=== PATIENT | female | born 1980 | race Caucasian/White ===

== ENCOUNTER 2017-01-10 06:21 | Emergency (ER) | payer BC ==
--- NOTE | 2017-01-10 06:56 | Emergency Department Record ---
History of Present Illness - General Chief Complaint: Dizziness Stated Complaint: DIZZINESS Time Seen by Provider: 01/10/17 06:51 Source: Patient Mode of Arrival: Ambulatory Limitations: No limitations - History of Present Illness Initial Comments: 36 yo female presents with 2 days of feeling dizzy, lightheaded and off balance. It started in the afternoon two days ago and was noticed just turning her head. She feels like she can not walk a straight line. She feels tired and "out of it". No significant headache. No vision changes. No nausea or vomiting. No syncope. She has been under going medication changes due to elevated liver enzymes that have been monitored through her PCP and a specialist at [facility] (Dr Lynn MERCADO Complaint: Dizziness, Difficulty walking Onset/Timin -: Days(s) Timing: Constant Description: Difficulty walking, Off-balance History of Same: No History of Trauma: No Severity: Mild Improves With: Nothing Worsens With: Nothing Associated Symptoms: Weakness - [place] Coma Scale Eye Response: (4) Open spontaneously Motor Response: (6) Obeys commands Verbal Response: (5) Oriented Tonya Total: 15 - Related Data Home Medications Medication Instructions Recorded Confirmed Last Taken Cetirizine HCl [Zyrtec] 10 mg PO DAILY 01/10/17 01/10/17 Unknown Fluoxetine HCl [Prozac] 40 mg PO DAILY 01/10/17 01/10/17 Unknown Allergies Allergy/AdvReac Type Severity Reaction Status Date / Time oxaprozin [From Daypro] Allergy RASH Verified 01/10/17 06:26 bupropion HCl AdvReac Mood Verified 01/10/17 06:26 [From Wellbutrin] Changes Travel Screening - Travel/Exposure Within Last 30 Days Have you traveled within the last 30 days?: No Review of Systems Constitutional: Reports: Malaise, Weakness. Denies: Chills, Fever Eyes: Denies: Eye discharge, Eye pain, Photophobia, Vision change ENT: Denies: Congestion, Throat pain Respiratory: Denies: Cough, Dyspnea, Hemoptysis, Stridor, Wheezes Cardiovascular: Reports: Syncope (2 years ago). Denies: Chest pain, Palpitations Endocrine: Reports: Fatigue. Denies: Polydipsia, Polyuria Gastrointestinal: Denies: Abdominal pain, Diarrhea, Nausea, Vomiting Genitourinary: Denies: Dysuria Musculoskeletal: Denies: Arthralgia, Back pain, Myalgia, Neck pain Skin: Reports: Bruising Neurological: Reports: Vertigo, Weakness. Denies: Confusion, Headache, Numbness , Tingling, Tremors Psychiatric: Denies: Anxiety Hematological/Lymphatic: Denies: Blood Clots, Easy bleeding, Easy bruising, Swollen glands Past Medical History - SOCIAL HISTORY Smoking Status: Light tobacco smoker (<10/day) Alcohol Use: None Drug Use: None - RESPIRATORY Hx Respiratory Disorders: No - CARDIOVASCULAR Hx Cardio Disorders: No - NEURO Hx Neuro Disorders: Yes Hx Headaches: Yes - GI Hx GI Disorders: Yes Hx Reflux: Yes - Hx Genitourinary Disorders: No - ENDOCRINE Hx Endocrine Disorders: No - MUSCULOSKELETAL Hx Musculoskeletal Disorders: No - PSYCH Hx Psych Problems: Yes Hx Depression: Yes - HEMATOLOGY/ONCOLOGY Hx Hematology/Oncology Disorders: No Family Medical History Any Significant Family History?: Yes Hx Cancer: Grandparents Hx Depression: Father *Diabetes Comment: Uncle *HTN Comment: Uncle Physical Exam - General General Appearance: Alert, Oriented x3, Cooperative, No acute distress Limitations: No limitations - Head Head exam: Normal inspection - Eye Eye exam: Normal appearance. negative: Conjunctival injection, Periorbital swelling - ENT ENT exam: Normal exam, Mucous membranes moist, Normal orophraynx Ear exam: Normal external inspection. negative: External canal tenderness Nasal Exam: Normal inspection. negative: Discharge, Sinus tenderness Mouth exam: Normal external inspection, Tongue normal Teeth exam: Normal inspection. negative: Dental caries Throat exam: Normal inspection. negative: Tonsillar erythema, Tonsillar exudate - Neck Neck exam: Normal inspection, Full ROM. negative: Lymphadenopathy, Tenderness - Respiratory Respiratory exam: Normal lung sounds bilaterally. negative: Respiratory distress - Cardiovascular Cardiovascular Exam: Regular rate, Normal rhythm, Normal heart sounds Peripheral Pulses: 2+: Radial (R), Radial (L) - Rectal Rectal exam: Deferred - exam: Deferred - Extremities Extremities exam: Normal inspection, Full ROM, Normal capillary refill. negative: Pedal edema, Tenderness - Back Back exam: Reports: Normal inspection, Full ROM. Denies: Muscle spasm, Rash noted, Tenderness - Neurological Neurological exam: Alert, Normal gait, Oriented X3. negative: Altered, Motor sensory deficit - Psychiatric Psychiatric exam: Normal affect, Normal mood. negative: Agitated, Anxious - Skin Skin exam: Dry, Intact, Normal color, Warm Course Vital Signs 04/12/17 06:30 Temperature 98.7 F Pulse Rate 69 Respiratory 18 Rate Blood Pressure 126/79 Pulse Ox 99 - Reevaluation(s) Reevaluation #1: The case was signed out to Dr Almaraz 01/10/17 07:00 Disposition Forms: Patient Portal Access
[2017-01-10 07:09] LABS: BASO % 0.6 % (0-6); EOS % 2.8 % (0-6); GRAN % 66.4 % (47-80); HEMOGLOBIN 14.1 gm/dl (11.6-16.0); LYMPH % 22.9 % (16-45); MEAN CELL VOLUME 94.4 fl (81-97); MEAN CORPUSCULAR HEMOGLOBIN 30.3 pg (27-33); MEAN PLATELET VOLUME 10.5 fl (7.4-10.4); MONO % 7.3 % (0-9); PLATELET COUNT 293 K/uL (130-400); RED BLOOD COUNT 4.66 M/uL (3.80-5.40); RED CELL DISTRIBUTION WIDTH 13.3 % (11.5-14.5); WHITE BLOOD COUNT W/O DIFF 6.7 K/uL (4.2-12.2)
[2017-01-10 07:14] LABS: URINE APPEARANCE CLEAR; URINE BILIRUBIN NEGATIVE (NEGATIVE); URINE BLOOD TRACE-I (NEGATIVE); URINE COLOR YELLOW; URINE GLUCOSE (UA) NEGATIVE (NEGATIVE); URINE KETONE NEGATIVE (NEGATIVE); URINE LEUKOCYTE ESTERASE NEGATIVE (NEGATIVE); URINE NITRITE NEGATIVE (NEGATIVE); URINE PROTEIN NEGATIVE (NEGATIVE); URINE UROBILINOGEN 0.2 E.U./dL (0.20 - 1.00)
[2017-01-10 07:18] LABS: AMPHETAMINE SCREEN URINE NOT DETECTED; BARBITURATE SCREEN URINE NOT DETECTED; BENZODIAZEPINE SCREEN URINE NOT DETECTED; COCAINE SCREEN URINE NOT DETECTED; METHADONE SCREEN URINE NOT DETECTED; METHAMPHETAMINE SCREEN NOT DETECTED; OPIATE SCREEN URINE NOT DETECTED; OXYCODONE SCREEN URINE NOT DETECTED; PHENCYCLIDINE SCREEN URINE NOT DETECTED; PROPOXYPHENE SCREEN URINE NOT DETECTED; THC SCREEN URINE NOT DETECTED; TRICYCLIC ANTIDEPRESSANT SCRN NOT DETECTED
[2017-01-10 07:21] LABS: URINE BACTERIA NONE SEEN; URINE EPITHELIAL CELLS NONE SEEN (FEW); URINE RBC 0 - 2 (NONE SEEN); URINE WBC NONE SEEN (0-2/hpf)
[2017-01-10 07:23] LABS: INR 0.91; PARTIAL THROMBOPLASTIN TIME 29.8 SECONDS (24.5-39.1); PROTHROMBIN TIME (PATIENT) 10.3 SECONDS (9.5-12.1)
[2017-01-10 07:24] LABS: AMMONIA < 8.7 umol/L (9-30); BLOOD UREA NITROGEN 12 mg/dL (7-17); CREATININE 0.9 mg/dL (0.52-1.04); EST GLOMERULAR FILTRATION RATE > 60 ml/min; GLUCOSE,RANDOM 98 mg/dL (70-110)
[2017-01-10 07:25] LABS: ALKALINE PHOSPHATASE 93 U/L (38-126); ALT/SGPT 132 U/L (9-52); AST/SGOT 93 U/L (14-36); BILIRUBIN,DIRECT 0.3 mg/dL (0-0.3); TOTAL PROTEIN 6.8 gm/dL (6.3-8.2)
[2017-01-10] MEDS: MECLIZINE 25 MG TABLET PO ONE (07:42)
--- NOTE | 2017-01-10 07:44 | Emergency Department Record ---
History of Present Illness - General Chief Complaint: Dizziness Stated Complaint: DIZZINESS Time Seen by Provider: 01/10/17 06:51 Source: Patient Mode of Arrival: Ambulatory Limitations: No limitations - History of Present Illness Onset/Timin -: Days(s) Timing: Constant Description: Difficulty walking, Off-balance History of Same: No History of Trauma: No Severity: Mild Improves With: Nothing Worsens With: Nothing Associated Symptoms: Weakness - [place] Coma Scale Eye Response: (4) Open spontaneously Motor Response: (6) Obeys commands Verbal Response: (5) Oriented Tonya Total: 15 - Related Data Home Medications Medication Instructions Recorded Confirmed Last Taken Cetirizine HCl [Zyrtec] 10 mg PO DAILY 01/10/17 01/10/17 Unknown Fluoxetine HCl [Prozac] 40 mg PO DAILY 01/10/17 01/10/17 Unknown Previous Rx's Medication Instructions Recorded Meclizine HCl [Antivert] 25 mg PO Q8H #20 tablet 01/10/17 Allergies Allergy/AdvReac Type Severity Reaction Status Date / Time oxaprozin [From Daypro] Allergy RASH Verified 01/10/17 06:26 bupropion HCl AdvReac Mood Verified 01/10/17 06:26 [From Wellbutrin] Changes Travel Screening - Travel/Exposure Within Last 30 Days Have you traveled within the last 30 days?: No Review of Systems Constitutional: Reports: Malaise, Weakness. Denies: Chills, Fever Eyes: Denies: Eye discharge, Eye pain, Photophobia, Vision change ENT: Denies: Congestion, Throat pain Respiratory: Denies: Cough, Dyspnea, Hemoptysis, Stridor, Wheezes Cardiovascular: Reports: Syncope (2 years ago). Denies: Chest pain, Palpitations Endocrine: Reports: Fatigue. Denies: Polydipsia, Polyuria Gastrointestinal: Denies: Abdominal pain, Diarrhea, Nausea, Vomiting Genitourinary: Denies: Dysuria Musculoskeletal: Denies: Arthralgia, Back pain, Myalgia, Neck pain Skin: Reports: Bruising Neurological: Reports: Vertigo, Weakness. Denies: Confusion, Headache, Numbness , Tingling, Tremors Psychiatric: Denies: Anxiety Hematological/Lymphatic: Denies: Blood Clots, Easy bleeding, Easy bruising, Swollen glands Past Medical History - SOCIAL HISTORY Smoking Status: Light tobacco smoker (<10/day) Alcohol Use: None Drug Use: None - RESPIRATORY Hx Respiratory Disorders: No - CARDIOVASCULAR Hx Cardio Disorders: No - NEURO Hx Neuro Disorders: Yes Hx Headaches: Yes - GI Hx GI Disorders: Yes Hx Reflux: Yes - Hx Genitourinary Disorders: No - ENDOCRINE Hx Endocrine Disorders: No - MUSCULOSKELETAL Hx Musculoskeletal Disorders: No - PSYCH Hx Psych Problems: Yes Hx Depression: Yes - HEMATOLOGY/ONCOLOGY Hx Hematology/Oncology Disorders: No Family Medical History Any Significant Family History?: Yes Hx Cancer: Grandparents Hx Depression: Father *Diabetes Comment: Uncle *HTN Comment: Uncle Physical Exam - General Limitations: No limitations Course Vital Signs 01/10/17 06:30 Temperature 98.7 F Pulse Rate 69 Respiratory 18 Rate Blood Pressure 126/79 Pulse Ox 99 - Reevaluation(s) Reevaluation #1: The patient is doing well presently. She denies any dizziness unless she is turning her head. She was texting on her phone when I walked into the room. There is no ROMERO, visual changes, neck pain, or weakness. We will try some Antivert and recheck the patient. 01/10/17 07:42 Reevaluation #2: The patient is doing much better. She states her dizziness is 90% improved with the Antivert. She is up walking with a steady gait and with a neg Drift and [place] exams. She denies any ROMERO, visual changes, nausea or vomiting. We will prescribe her Antivert for home and have her F/U with her PCP next week. 01/10/17 08:14 01/10/17 08:17 Medical Decision Making - Lab Data Result diagrams: 01/10/17 07:00 01/10/17 07:00 Lab Results 01/10/17 01/10/17 01/10/17 Range/Units 07:00 07:00 07:00 WBC 6.7 (4.2-12.2) K/uL RBC 4.66 (3.80-5.40) M/uL Hgb 14.1 (11.6-16.0) gm/dl Hct 44.0 (35.0-47.0) % MCV 94.4 (81-97) fl MCH 30.3 (27-33) pg MCHC 32.0 (32-36) g/dl RDW 13.3 (11.5-14.5) % Plt Count 293 (130-400) K/uL MPV 10.5 H (7.4-10.4) fl Gran % 66.4 (47-80) % Lymphocytes % 22.9 (16-45) % Monocytes % 7.3 (0-9) % Eosinophils % 2.8 (0-6) % Basophils % 0.6 (0-6) % PT 10.3 (9.5-12.1) SECONDS INR 0.91 APTT 29.80 (24.5-39.1) SECONDS Sodium (136-145) mmol/L Potassium (3.5-5.1) mmol/L Chloride (98-107) mmol/L Carbon Dioxide (22-30) mmol/L Anion Gap (7-16) BUN (7-17) mg/dL Creatinine (0.52-1.04) mg/dL Estimated GFR ml/min Random Glucose (70-110) mg/dL Calcium (8.5-10.1) mg/dL Total Bilirubin (0.2-1.3) mg/dL Direct Bilirubin (0-0.3) mg/dL AST (14-36) U/L ALT (9-52) U/L Alkaline Phosphatase (38-126) U/L Ammonia (9-30) umol/L Total Protein (6.3-8.2) gm/dL Albumin (3.5-5.0) gm/dL Urine Color Yellow Urine Appearance Clear Urine pH 5.5 (5.0-8.0) Ur Specific [place] >= 1.030 (1.002-1.030) Urine Protein Negative (NEGATIVE) Urine Glucose (UA) Negative (NEGATIVE) Urine Ketones Negative (NEGATIVE) Urine Blood Trace-i (NEGATIVE) Urine Nitrite Negative (NEGATIVE) Urine Bilirubin Negative (NEGATIVE) Urine Urobilinogen 0.2 (0.20 - 1.00) E.U./dL Ur Leukocyte Esterase Negative (NEGATIVE) Urine RBC 0 - 2 (NONE SEEN) Urine WBC None seen (0-2/hpf) Ur Epithelial Cells None seen (FEW) Urine Bacteria None seen Urine HCG, Qual (NEGATIVE) Urine Opiates Screen Ur Oxycodone Screen Urine Methadone Screen Ur Propoxyphene Screen Ur Barbituates Screen Ur Tricyclics Screen Ur Phencyclidine Scrn Ur Amphetamine Screen U Methamphetamines Scrn U Benzodiazepines Scrn Urine Cocaine Screen Urine Cannabis Screen 01/10/17 01/10/17 01/10/17 Range/Units 07:00 07:00 07:00 WBC (4.2-12.2) K/uL RBC (3.80-5.40) M/uL Hgb (11.6-16.0) gm/dl Hct (35.0-47.0) % MCV (81-97) fl MCH (27-33) pg MCHC (32-36) g/dl RDW (11.5-14.5) % Plt Count (130-400) K/uL MPV (7.4-10.4) fl Gran % (47-80) % Lymphocytes % (16-45) % Monocytes % (0-9) % Eosinophils % (0-6) % Basophils % (0-6) % PT (9.5-12.1) SECONDS INR APTT (24.5-39.1) SECONDS Sodium 140 (136-145) mmol/L Potassium 4.2 (3.5-5.1) mmol/L Chloride 107 (98-107) mmol/L Carbon Dioxide 26.0 (22-30) mmol/L Anion Gap 7.0 (7-16) BUN 12 (7-17) mg/dL Creatinine 0.9 (0.52-1.04) mg/dL Estimated GFR > 60 ml/min Random Glucose 98 (70-110) mg/dL Calcium 8.7 (8.5-10.1) mg/dL Total Bilirubin 0.50 (0.2-1.3) mg/dL Direct Bilirubin 0.3 (0-0.3) mg/dL AST 93 H (14-36) U/L ALT 132 H (9-52) U/L Alkaline Phosphatase 93 (38-126) U/L Ammonia < 8.7 L (9-30) umol/L Total Protein 6.8 (6.3-8.2) gm/dL Albumin 4.0 (3.5-5.0) gm/dL Urine Color Urine Appearance Urine pH (5.0-8.0) Ur Specific [place] (1.002-1.030) Urine Protein (NEGATIVE) Urine Glucose (UA) (NEGATIVE) Urine Ketones (NEGATIVE) Urine Blood (NEGATIVE) Urine Nitrite (NEGATIVE) Urine Bilirubin (NEGATIVE) Urine Urobilinogen (0.20 - 1.00) E.U./dL Ur Leukocyte Esterase (NEGATIVE) Urine RBC (NONE SEEN) Urine WBC (0-2/hpf) Ur Epithelial Cells (FEW) Urine Bacteria Urine HCG, Qual Negative (NEGATIVE) Urine Opiates Screen Not detected Ur Oxycodone Screen Not detected Urine Methadone Screen Not detected Ur Propoxyphene Screen Not detected Ur Barbituates Screen Not detected Ur Tricyclics Screen Not detected Ur Phencyclidine Scrn Not detected Ur Amphetamine Screen Not detected U Methamphetamines Scrn Not detected U Benzodiazepines Scrn Not detected Urine Cocaine Screen Not detected Urine Cannabis Screen Not detected Disposition Disposition: Discharge Clinical Impression: Vertigo Disposition: Home, Self-Care Condition: (1) Good Instructions: Dizziness (ED) Additional Instructions: Please take the Antivert as directed. Please see your PCP next week for recheck. Return to the ER for any increased dizziness, any ROMERO, fever or vomiting. Prescriptions: Meclizine HCl [Antivert] 25 mg PO Q8H #20 tablet Forms: Patient Portal Access Time of Disposition: 08:19
== END 2017-01-10 08:35 | disposition home or self-care (01) ==
LOC: ER 06:21
DX: R42 Dizziness and giddiness (principal); R26.2 Difficulty in walking, not elsewhere classified; R74.8 Abnormal levels of other serum enzymes; Z79.899 Other long term (current) drug therapy
CPT/HCPCS: 80048; 80076; 80305; 81001; 81025; 82140; 85025; 85610; 85730; 99283; 99284

== ENCOUNTER 2017-09-01 03:33 | Emergency (ER) | payer BC ==
--- NOTE | 2017-09-01 03:43 | Emergency Department Record ---
History of Present Illness - General Chief Complaint: Chest Pain Stated Complaint: CHEST PAIN Time Seen by Provider: 09/01/17 03:33 Source: Patient Mode of Arrival: Ambulatory Limitations: No limitations - History of Present Illness Initial Comments: 37 yo female presents with chest pain. The patient reports the pain started at 9:30pm. She was laying down to go to bed with the onset. The pain is mid chest. The pain is more noticeable with laying down or taking a deep breath. The pain does radiate to the back with deep inspiration. She did notice some increased reflux early Sunday morning. She did not take anything for the symptoms. She feels some restriction with breathing due to pain with inspiration. NO history of cardiac or pulmonary disease. No family history of CAD or PE. NO recent leg pain or swelling. No known cancers. She reports she has had chest pain in the past and was evaluated at [facility]. She states she had a normal stress test and believes anxiety was the diagnosis at that time. MD Complaint: Chest pain -: Hour(s) (6) Onset: During rest Pain Location: Substernal Pain Radiation: Back Severity: Moderate Quality: Aching Consistency: Constant Improves With: Remaining still Worsens With: Inspiration Anginal Symptoms: Other Treatments Prior to Arrival: None - Related Data Previous Rx's Medication Instructions Recorded Meclizine HCl [Antivert] 25 mg PO Q8H #20 tablet 01/10/17 Cyclobenzaprine HCl [Flexeril] 10 mg PO TID #15 tablet 09/01/17 Allergies Allergy/AdvReac Type Severity Reaction Status Date / Time oxaprozin [From Daypro] Allergy RASH Verified 01/10/17 06:26 bupropion HCl AdvReac Mood Verified 01/10/17 06:26 [From Wellbutrin] Changes hydrocodone AdvReac NAUSEA AND Verified 09/01/17 04:08 VOMITING Review of Systems Constitutional: Denies: Chills, Fever, Malaise, Weakness Eyes: Denies: Eye discharge ENT: Denies: Congestion, Throat pain Respiratory: Denies: Cough, Dyspnea, Hemoptysis, Stridor, Wheezes Cardiovascular: Reports: As per HPI, Chest pain. Denies: Edema, Palpitations, Syncope Endocrine: Denies: Fatigue Gastrointestinal: Denies: Abdominal pain, Diarrhea, Nausea, Vomiting Genitourinary: Denies: Dysuria, Urgency Musculoskeletal: Denies: Arthralgia, Back pain, Joint swelling, Myalgia, Neck pain Skin: Reports: Rash (healed shingles). Denies: Bruising, Change in color Neurological: Denies: Headache, Numbness, Weakness Psychiatric: Denies: Anxiety Hematological/Lymphatic: Denies: Blood Clots, Easy bleeding, Easy bruising, Swollen glands Past Medical History - SOCIAL HISTORY Smoking Status: Light tobacco smoker (<10/day) Drug Use: None - RESPIRATORY Hx Respiratory Disorders: No - CARDIOVASCULAR Hx Cardio Disorders: No - NEURO Hx Neuro Disorders: Yes Hx Headaches: Yes - GI Hx GI Disorders: Yes Hx Reflux: Yes - Hx Genitourinary Disorders: No - ENDOCRINE Hx Endocrine Disorders: No - MUSCULOSKELETAL Hx Musculoskeletal Disorders: No - PSYCH Hx Psych Problems: Yes Hx Depression: Yes - HEMATOLOGY/ONCOLOGY Hx Hematology/Oncology Disorders: No Family Medical History Hx Cancer: Grandparents Hx Depression: Father *Diabetes Comment: Uncle *HTN Comment: Uncle Physical Exam - General General Appearance: Alert, Oriented x3, Cooperative, No acute distress Limitations: No limitations - Head Head exam: Atraumatic, Normocephalic, Normal inspection - Eye Eye exam: Normal appearance. negative: Conjunctival injection, Periorbital swelling, Scleral icterus - ENT ENT exam: Normal exam, Mucous membranes moist Ear exam: Normal external inspection Nasal Exam: Normal inspection Mouth exam: Normal external inspection - Neck Neck exam: Normal inspection, Full ROM. negative: Tenderness - Respiratory Respiratory exam: Normal lung sounds bilaterally, Chest wall tenderness (The sternum is tender at its mid to distal area.). negative: Accessory muscle use, Decreased breath sounds, Respiratory distress, Rhonchi, Stridor, Wheezes - Cardiovascular Cardiovascular Exam: Regular rate, Normal rhythm, Normal heart sounds. negative : Diastolic murmur, Systolic murmur Peripheral Pulses: 2+: Radial (R), Radial (L) - GI/Abdominal GI/Abdominal exam: Soft. negative: Guarding, Rebound, Tenderness - Rectal Rectal exam: Deferred - exam: Deferred - Extremities Extremities exam: Normal inspection, Full ROM, Normal capillary refill. negative: Pedal edema, Tenderness - Back Back exam: Reports: Normal inspection, Full ROM, Tenderness. Denies: CVA tenderness (R), CVA tenderness (L), Muscle spasm, Rash noted Image of Body Front/Back: 1 - tender to palpation normal inspection, clear lungs bilateral without wheeze - Neurological Neurological exam: Alert, Normal gait, Oriented X3 - Psychiatric Psychiatric exam: Normal affect, Normal mood - Skin Skin exam: Dry, Intact, Normal color, Warm Course - Reevaluation(s) Reevaluation #1: 09/01/17 03:38 The EMR and the [facility] was reviewed The patient was seen at [facility] on 08/10/17 in the clinic 09/01/17 03:41 EKG 03:37 NSR rate 77, intervals normal, axis leftward, ST no acute changes.. No old on EMR 09/01/17 03:56 Prior EKG from [facility] requested. 09/01/17 04:06 EKG was obtained from [facility] from 09/22/16. The EKG was reviewed and is unchanged from today's EKG. 09/01/17 04:10 CTA of the chest with contrast was reviewed from 03/01/10 Nodule noted, No acute process. 09/01/17 04:21 The D-Dimer is negative at 0.23 09/01/17 04:26 The troponin is negative 09/01/17 04:48 On recheck the pain with inspiration is not improved with Toradol or GI cocktail I recommend CTA given the pain is not improved The prelim CXR was read by me at no acute process. 09/01/17 05:[address] scan of the chest was read as normal without any acute process. Medical Decision Making - Lab Data Result diagrams: 09/01/17 03:45 09/01/17 03:45 Disposition Disposition: Discharge Clinical Impression: Chest wall pain Disposition: Home, Self-Care Condition: (2) Stable Instructions: Chest Wall Pain (ED) Additional Instructions: Return if you have any fever, cough, short of breath, worse pain Call your doctor for close follow up of this ER visit and your symptoms Prescriptions: Cyclobenzaprine HCl [Flexeril] 10 mg PO TID #15 tablet Forms: Patient Portal Access Quality - Quality Measures Quality Measures: N/A - Blood Pressure Screening Does Patient Have Any of the Following: No Blood Pressure Classification: Pre-Hypertensive BP Reading Systolic Measurement: 121 Diastolic Measurement: 69 Screening for High Blood Pressure: < Pre-Hypertensive BP, F/U Documented > [ [id number]] Pre-Hypertensive Follow-up Interventions: Referral to alternative/primary care provider.
[2017-09-01] MEDS ORDERED: MAGNESIUM HYDROXIDE/AL HYDROX 30 ML, LIDOCAINE VISC 2% 200 MG PO ONE ×2 (03:51)
[2017-09-01] MEDS ORDERED: 0.9 % SODIUM CHLORIDE 1,000 ML BAG IV ONE (03:51)
[2017-09-01 04:02] LABS: BASO % 0.4 % (0-6); EOS % 2.6 % (0-6); GRAN % 60.5 % (47-80); HEMATOCRIT 40.1 % (35.0-47.0); HEMOGLOBIN 13.5 gm/dl (11.6-16.0); LYMPH % 27.7 % (16-45); MEAN CELL VOLUME 92.4 fl (81-97); MEAN CORPUSCULAR HEMOGLOBIN 31.1 pg (27-33); MEAN CORPUSCULAR HGB CONC 33.7 g/dl (32-36); MEAN PLATELET VOLUME 10.7 fl (7.4-10.4); MONO % 8.8 % (0-9); PLATELET COUNT 283 K/uL (130-400); RED BLOOD COUNT 4.34 M/uL (3.80-5.40); RED CELL DISTRIBUTION WIDTH 12.5 % (11.5-14.5)
[2017-09-01] MEDS ORDERED: KETOROLAC 30 MG/ML VIAL IVP ONE (04:03)
[2017-09-01 04:12] LABS: BLOOD UREA NITROGEN 10 mg/dL (6-20); CREATININE 0.9 mg/dL (0.5-0.9); EST GLOMERULAR FILTRATION RATE > 60 mL/min
[2017-09-01 04:15] LABS: GLUCOSE,RANDOM 107 mg/dL (74-109)
[2017-09-01] MEDS ORDERED: HYDROMORPHONE HCL 1MG/ML **SYRINGE IVP ONE (04:46)
[2017-09-01] MEDS ORDERED: ONDANSETRON HCL IV 4 MG/2 ML VIAL IVP ONE (04:47)
[2017-09-01] MEDS ORDERED: METHYLPREDNISOLONE PF 125MG/VIAL IVP ONE (05:53)
--- NOTE | 2017-09-01 11:18 | RADIOLOGY REPORT ---
EXAM: CHEST 2 VIEWS HISTORY: PAIN WITH INSPIRATION FOR ONE DAY. TECHNIQUE: Two-view chest. COMPARISON: CT of the chest, 09/01/2017. FINDINGS: Lungs are clear. Cardiac silhouette, diaphragm, and osseous structures are unremarkable for age. IMPRESSION: NO ACUTE INTRATHORACIC PROCESS. JOB NUMBER: [id number] MTDD
--- NOTE | 2017-09-01 11:23 | CT ANGIOGRAM REPORT ---
EXAM: CT ANGIOGRAM CHEST CTA w contrast HISTORY: ACUTE GENERALIZED CHEST PAIN. CHEST PAIN ON INSPIRATION, MID STERNAL REGION. TECHNIQUE: Contiguous axial images from the thoracic inlet to the upper abdomen were obtained after the uneventful intravenous administration of 100 mL of Omnipaque-350. Sagittal and coronal two-dimensional MIP reformatted images were obtained for better anatomic delineation. COMPARISON: Chest x-ray, 09/01/2017. FINDINGS: Lungs are clear. No pleural effusion. Central airways are patent. The heart is not enlarged and there is no pericardial effusion. No enlarged lymph nodes in the thorax. No pulmonary embolism. No thoracic aortic dissection or aneurysm. Small hiatal hernia. Upper abdomen is unremarkable. No fracture. No lytic or blastic lesion. IMPRESSION: 1. NO ACUTE INTRATHORACIC PROCESS WITH NO PE OR THORACIC AORTIC DISSECTION. 2. SMALL HIATAL HERNIA. JOB NUMBER: [id number] MTDD
== END 2017-09-01 08:12 | disposition home or self-care (01) ==
LOC: ER 03:33
DX: R07.89 Other chest pain (principal); M54.6 Pain in thoracic spine; F17.210 Nicotine dependence, cigarettes, uncomplicated
CPT/HCPCS: 71020; 71275; 80048; 82553; 84484; 84703; 85025; 85379; 93005; 93010; 96374; 96375; 99284; J1170; J1885; J2405; J2930; J7030

== ENCOUNTER 2017-12-05 14:36 | Emergency (ER) | payer SELFPAY ==
--- NOTE | 2017-12-05 17:51 | Emergency Department Record ---
History of Present Illness - General Chief complaint: Pain Stated complaint: RT ELBOW PAIN/BRUISED Time Seen by Provider: 12/05/17 17:48 Source: Patient Mode of Arrival: Ambulatory Limitations: No limitations - History of Present Illness Initial comments: 37 yo female presents to ED for evaluation of pain to the right elbow x 9-10 days. Patient reports that she performs a lot of lifting at work, reports that on 11/27/17 she felt a "snap" sensation to the right elbow ahile at work followed by pain symptoms. Patient denies weakness, numbness, or tingling symptoms, but does report intermittent pain symptoms to the elbow. Patient reports that she has been using an elbow brace for support as well. Patient denies health problems at her baseline. MD Complaint: Extremity pain Onset/Timin -: Week(s) Location: Right, Elbow, Forearm History of Same: No Severity scale (1-10): 4 Quality: Dull, Other Consistency: Constant Improves with: Nothing Worsens with: Exertion, Palpation, Weight bearing Associated Symptoms: Denies other symptoms - Related Data Home Medications Medication Instructions Recorded Confirmed Last Taken Diclofenac Sodium [Diclofenac 1 gm TOP DAILY 12/05/17 12/05/17 Unknown Sodium] Duloxetine HCl [Cymbalta] 30 mg PO DAILY 12/05/17 12/05/17 Unknown Omalizumab [Xolair] 150 mg SQ MONTHLY 12/05/17 12/05/17 Unknown Phentermine HCl 30 mg PO DAILY 12/05/17 12/05/17 Unknown Allergies Allergy/AdvReac Type Severity Reaction Status Date / Time oxaprozin [From Daypro] Allergy RASH Verified 01/10/17 06:26 bupropion HCl AdvReac Mood Verified 01/10/17 06:26 [From Wellbutrin] Changes hydrocodone AdvReac NAUSEA AND Verified 09/01/17 04:08 VOMITING Travel Screening - Travel/Exposure Within Last 30 Days Have you traveled within the last 30 days?: No Review of Systems Constitutional: Denies: Chills, Fever, Malaise, Night sweats Eyes: Denies: Eye discharge, Eye pain ENT: Denies: Congestion, Ear pain, Epistaxis Respiratory: Denies: Cough, Dyspnea Cardiovascular: Denies: Chest pain, Dyspnea on exertion Endocrine: Denies: Fatigue, Heat or cold intolerance Gastrointestinal: Denies: Abdominal pain, Nausea, Vomiting Genitourinary: Denies: Incontinence, Retention Musculoskeletal: Reports: Arthralgia. Denies: Back pain, Gout, Joint swelling Skin: Reports: Bruising. Denies: Change in color, Change in hair/nails Neurological: Denies: Abnormal gait, Confusion, Headache, Tingling Psychiatric: Denies: Anxiety Hematological/Lymphatic: Denies: Anemia, Blood Clots Past Medical History - SOCIAL HISTORY Smoking Status: Light tobacco smoker (<10/day) Alcohol Use: Rare Drug Use: None - RESPIRATORY Hx Respiratory Disorders: No - CARDIOVASCULAR Hx Cardio Disorders: No - NEURO Hx Neuro Disorders: Yes Hx Headaches: Yes - GI Hx GI Disorders: Yes Hx Reflux: Yes - Hx Genitourinary Disorders: No - ENDOCRINE Hx Endocrine Disorders: No - MUSCULOSKELETAL Hx Musculoskeletal Disorders: No - PSYCH Hx Psych Problems: Yes Hx Anxiety: Yes Hx Depression: Yes - HEMATOLOGY/ONCOLOGY Hx Hematology/Oncology Disorders: No Family Medical History Any Significant Family History?: Yes Hx Cancer: Grandparents Hx Depression: Father *Diabetes Comment: Uncle *HTN Comment: Uncle Physical Exam - General General Appearance: Alert, Oriented x3, Cooperative, No acute distress Limitations: No limitations - Head Head exam: Atraumatic, Normocephalic, Normal inspection Head exam detail: negative: Abrasion, Contusion, Day's sign, General tenderness, Hematoma, Laceration - Eye Eye exam: Normal appearance. negative: Conjunctival injection, Periorbital swelling, Periorbital tenderness, Scleral icterus - ENT Ear exam: negative: Auricular hematoma, Auricular trauma Nasal Exam: negative: Active bleeding, Discharge, Dried blood, Foreign body Mouth exam: negative: Drooling, Laceration, Tongue elevation - Neck Neck exam: Normal inspection. negative: Meningismus, Tenderness - Respiratory Respiratory exam: Normal lung sounds bilaterally. negative: Respiratory distress, Rhonchi, Stridor, Wheezes - Cardiovascular Cardiovascular Exam: Regular rate, Normal rhythm, Normal heart sounds Peripheral Pulses: 3+: Radial (R) - GI/Abdominal GI/Abdominal exam: Soft. negative: Rebound, Rigid, Tenderness - Rectal Rectal exam: Deferred - exam: Deferred - Extremities Extremities exam: Tenderness, Other (MIld TTP along the medial forearm, mild ecchymosis present as well. Roundsman strength 5/5, FROM and strength with wrist flexion/extension. Strong radial pulse, compartments are soft on examination.) . negative: Calf tenderness - Back Back exam: Reports: Normal inspection. Denies: CVA tenderness (R), CVA tenderness (L) - Neurological Neurological exam: Alert, Normal gait, Oriented X3 - Psychiatric Psychiatric exam: Normal affect, Normal mood - Skin Skin exam: Normal color. negative: Abrasion Type of lesion: negative: abrasion Course Vital Signs 12/05/17 16:47 Temperature 98.4 F Pulse Rate 61 Respiratory 20 Rate Blood Pressure 117/80 Pulse Ox 100 - Reevaluation(s) Reevaluation #1: 12/05/17 17:58 Examination appears c/w elbow strain/overuse injury, less likely forearm tendon rupture as the patient's strength is 5/5 distally. Encouraged the use of her elbow brace, NSAIDs, and follow-up with Dr. Bueno for possible tendon rupture. Patient will be put on limited use of the extremity at work as well, and appears stable for discharge at this time. Disposition Disposition: Discharge Clinical Impression: Strain of elbow, right Qualifiers: Encounter type: initial encounter Qualified Code(s): S56.911A - Strain of unspecified muscles, fascia and tendons at forearm level, right arm, initial encounter Disposition: Home, Self-Care Condition: (2) Stable Instructions: Tenosynovitis (ED) Additional Instructions: Return to ED if your symptoms worsen of if you have any concerns. Ibuprofen as needed. Elbow strap for support. Reduce use of the extremity at work for 1 week. Follow-up with Dr. Bueno in the [facility] in 3-5 days as directed. Referrals: DYANA BUENO [DOCTOR OF OSTEOPATH] - [facility] [Provider Group] Forms: Patient Portal Access Time of Disposition: 17:51 Quality - Quality Measures Quality Measures: N/A - Blood Pressure Screening Does Patient Have Any of the Following: No Blood Pressure Classification: Pre-Hypertensive BP Reading Systolic Measurement: 117 Diastolic Measurement: 80 Screening for High Blood Pressure: < Pre-Hypertensive BP, F/U Documented > [ G8950] Pre-Hypertensive Follow-up Interventions: Referral to alternative/primary care provider.
== END 2017-12-05 18:00 | disposition home or self-care (01) ==
LOC: ER 14:36
DX: S56.911A Strain of unspecified muscles, fascia and tendons at forearm level, right arm, initial encounter (principal); X50.3XXA Overexertion from repetitive movements, initial encounter; Y99.0 Civilian activity done for income or pay; F17.210 Nicotine dependence, cigarettes, uncomplicated
CPT/HCPCS: 99282; 99283

== ENCOUNTER 2017-12-11 10:58 | Emergency (ER) | payer OTHER ==
--- NOTE | 2017-12-11 11:53 | Emergency Department Record ---
History of Present Illness - General Chief Complaint: Fall Injury Stated Complaint: FALL INJURY Time Seen by Provider: 12/11/17 11:15 Source: Patient Mode of Arrival: Ambulatory Limitations: No limitations - History of Present Illness Initial Comments: pt slipped on ice yesterday and injured her hip , lower back, l wrist. she went [facility] and [facility] xrays. 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 Fall Witnessed: No Place Fall Occurred: Work, Street Loss of Consciousness: None Prolonged Down Time?: No Symptoms Prior to Fall: None Location: Back Location - Extremities: Left: Forearm Severity scale (1-10): 7 Context: Tripped/slipped Associated Symptoms: Denies - Related Data Allergies Allergy/AdvReac Type Severity Reaction Status Date / Time oxaprozin [From Daypro] Allergy RASH Verified 01/10/17 06:26 bupropion HCl AdvReac Mood Verified 01/10/17 06:26 [From Wellbutrin] Changes hydrocodone AdvReac NAUSEA AND Verified 09/01/17 04:08 VOMITING Travel Screening - Travel/Exposure Within Last 30 Days Have you traveled within the last 30 days?: No Review of Systems Reviewed: No additional complaints except as noted below Constitutional: Reports: As per HPI. Denies: Chills, Fever, Malaise, Night sweats, Weakness, Weight change Eyes: Reports: As per HPI. Denies: Eye discharge, Eye pain, Photophobia, Vision change ENT: Reports: As per HPI. Denies: Congestion, Dental pain, Ear pain, Epistaxis , Hearing loss, Throat pain Respiratory: Reports: As per HPI. Denies: Cough, Dyspnea, Hemoptysis, Stridor, Wheezes Cardiovascular: Reports: As per HPI. Denies: Arrhythmia, Chest pain, Dyspnea on exertion, Edema, Murmurs, Orthopnea, Palpitations, Paroxysmal nocturnal dyspnea, Rheumatic Fever, Syncope Endocrine: Reports: As per HPI. Denies: Fatigue, Heat or cold intolerance, Polydipsia, Polyuria Gastrointestinal: Reports: As per HPI. Denies: Abdominal pain, Constipation, Diarrhea, Hematemesis, Hematochezia, Melena, Nausea, Vomiting Genitourinary: Reports: As per HPI. Denies: Abnormal menses, Discharge, Dyspareunia, Dysuria, Frequency, Hematuria, Incontinence, Retention, Urgency Musculoskeletal: Reports: As per HPI. Denies: Arthralgia, Back pain, Gout, Joint swelling, Myalgia, Neck pain Skin: Reports: As per HPI. Denies: Bruising, Change in color, Change in hair/ nails, Lesions, Pruritus, Rash Neurological: Reports: As per HPI. Denies: Abnormal gait, Confusion, Headache, Numbness, Paresthesias, Seizure, Tingling, Tremors, Vertigo, Weakness Psychiatric: Reports: As per HPI. Denies: Anxiety, Auditory hallucinations, Depression, Homicidal thoughts, Suicidal thoughts, Visual hallucinations Hematological/Lymphatic: Reports: As per HPI. Denies: Anemia, Blood Clots, Easy bleeding, Easy bruising, Swollen glands Past Medical History - SOCIAL HISTORY Smoking Status: Light tobacco smoker (<10/day) - RESPIRATORY Hx Respiratory Disorders: No - CARDIOVASCULAR Hx Cardio Disorders: No - NEURO Hx Neuro Disorders: Yes Hx Headaches: Yes - GI Hx GI Disorders: Yes Hx Reflux: Yes - Hx Genitourinary Disorders: No - ENDOCRINE Hx Endocrine Disorders: No - MUSCULOSKELETAL Hx Musculoskeletal Disorders: No - PSYCH Hx Psych Problems: Yes Hx Anxiety: Yes Hx Depression: Yes - HEMATOLOGY/ONCOLOGY Hx Hematology/Oncology Disorders: No Family Medical History Any Significant Family History?: Yes Hx Cancer: Grandparents Hx Depression: Father *Diabetes Comment: Uncle *HTN Comment: Uncle Physical Exam - General General Appearance: Alert, Oriented x3, Cooperative, Mild distress - Head Head exam: Normal inspection - Eye Eye exam: Normal appearance, PERRL, EOMI Pupils: Normal accommodation - ENT ENT exam: Normal exam, Mucous membranes moist, Normal external ear exam, Normal orophraynx Ear exam: Normal external inspection. negative: External canal tenderness Nasal Exam: Normal inspection. negative: Discharge, Sinus tenderness Mouth exam: Normal external inspection, Tongue normal Teeth exam: Normal inspection. negative: Dental caries Throat exam: Normal inspection. negative: Tonsillar erythema, Tonsillar exudate - Neck Neck exam: Normal inspection, Full ROM. negative: Tenderness - Respiratory Respiratory exam: Normal lung sounds bilaterally, Chest wall tenderness. negative: Respiratory distress - Cardiovascular Cardiovascular Exam: Regular rate, Normal rhythm, Normal heart sounds - GI/Abdominal GI/Abdominal exam: Soft, Normal bowel sounds. negative: Tenderness - Rectal Rectal exam: Deferred - exam: Deferred - Extremities Extremities exam: Normal inspection, Full ROM, Normal capillary refill, Tenderness (l wrist) - Back Back exam: Reports: Full ROM, Tenderness. Denies: Muscle spasm, Rash noted - Neurological Neurological exam: Alert, CN II-XII intact, Normal gait, Oriented X3 - Psychiatric Psychiatric exam: Normal affect, Normal mood - Skin Skin exam: Dry, Intact, Normal color, Warm Course Vital Signs 12/11/17 11:15 Temperature 98.3 F Pulse Rate [ 81 Pulse Ox Probe] Respiratory 18 Rate Blood Pressure 122/78 [Right Arm] Pulse Ox 100 Disposition Disposition: Discharge Clinical Impression: Multiple contusions Disposition: Home, Self-Care Condition: (1) Good Instructions: Contusion in Adults (ED) Additional Instructions: following up with specialty clinic with previous referral. Forms: Patient Portal Access Quality - Quality Measures Quality Measures: N/A - Blood Pressure Screening Does Patient Have Any of the Following: No Blood Pressure Classification: Pre-Hypertensive BP Reading Systolic Measurement: 122 Diastolic Measurement: 78 Screening for High Blood Pressure: < Pre-Hypertensive BP, F/U Documented > [ G8950] Pre-Hypertensive Follow-up Interventions: Follow-up with rescreen every year.
--- NOTE | 2017-12-12 14:38 | RADIOLOGY REPORT ---
EXAM: CHEST, TWO VIEWS HISTORY: PATIENT FELL ON ICE YESTERDAY WITH PAIN ALL OVER. TECHNIQUE: PA and lateral views of the chest were obtained. Comparison: Two view chest 09/01/17. FINDINGS: The heart size projects smaller than before, within normal limits. Horizontal metallic dumbbell shaped densities overlie the lung bases anteriorly consistent with bilateral periareolar ornamental devices within the breasts. No acute infiltrate identified. No pleural effusion or pneumothorax evident. Minor thoracic curve to the right with minor spurring in the spine. IMPRESSION: 1. THE HEART SIZE PROJECTS SMALLER THAN ON 09/01/17. 2. NO ACUTE INFILTRATE EVIDENT. 3. MINOR THORACIC CURVE RO THE RIGHT WITH MINOR SPURRING IN THE SPINE. JOB NUMBER: [id number] [facility]TDD
--- NOTE | 2017-12-12 14:41 | RADIOLOGY REPORT ---
EXAM: LEFT WRIST HISTORY: PATIENT FELL ON ICE YESTERDAY WITH LEFT WRIST PAIN. TECHNIQUE: Four views of the left wrist were obtained. Comparison: No prior left wrist series. Encounter: Initial. FINDINGS: The left wrist appears intact with no definite fracture or dislocation seen, however, if the patient's symptoms persist, a follow-up study in 10-14 days time would be suggested to exclude a currently radiographically occult fracture. IMPRESSION: NO FRACTURE OF THE LEFT WRIST IDENTIFIED. JOB NUMBER: [id number] [facility]
--- NOTE | 2017-12-12 15:08 | RADIOLOGY REPORT ---
EXAM: LUMBAR SPINE, THREE VIEWS HISTORY: PATIENT FELL ON ICE YESTERDAY WITH LOW BACK PAIN. TECHNIQUE: AP, translumbar lateral, and lumbosacral lateral views of the lumbar spine were obtained. Comparison: None. Encounter: Initial. FINDINGS: There is a mild lumbar curve to the left. Mild narrowing of the lumbosacral interspace. There is probably mild narrowing at some of the other lumbar interspaces as well although difficult to asses on the lateral view due to the mild curvature to the left evident on the frontal view. There is some mild scattered hypertrophic spurring throughout much of the lumbar spine as well as visualized lower thoracic spine. No fracture of the lumbar spine identified. A couple wire densities in the pelvis probably related to Essure device placement within the fallopian tubes. IMPRESSION: 1. MILD LUMBAR CURVE TO THE LEFT. 2. MILD NARROWING AT MULTIPLE LUMBAR INTERSPACES WITH ASSOCIATED MILD HYPERTROPHIC SPURRING. 3. NO FRACTURE OF THE LUMBAR SPINE IDENTIFIED. JOB NUMBER: [id number] [facility]TDD
== END 2017-12-11 13:49 | disposition home or self-care (01) ==
LOC: ER 10:58
DX: S30.0XXA Contusion of lower back and pelvis, initial encounter (principal); S60.212A Contusion of left wrist, initial encounter; S70.02XA Contusion of left hip, initial encounter; S20.219A Contusion of unspecified front wall of thorax, initial encounter; W00.0XXA Fall on same level due to ice and snow, initial encounter; Y92.410 Unspecified street and highway as the place of occurrence of the external cause; Y99.0 Civilian activity done for income or pay; F17.210 Nicotine dependence, cigarettes, uncomplicated
CPT/HCPCS: 71046; 72100; 99283; 99284

== ENCOUNTER 2017-12-21 17:09 | Emergency (ER) | payer BC, OTHER ==
[2017-12-21 18:57] LABS: URINE APPEARANCE SL CLOUDY; URINE BILIRUBIN NEGATIVE (NEGATIVE); URINE BLOOD NEGATIVE (NEGATIVE); URINE COLOR ORANGE; URINE GLUCOSE (UA) NEGATIVE (NEGATIVE); URINE KETONE NEGATIVE (NEGATIVE); URINE LEUKOCYTE ESTERASE NEGATIVE (NEGATIVE); URINE NITRITE NEGATIVE (NEGATIVE); URINE PROTEIN NEGATIVE (NEGATIVE); URINE UROBILINOGEN 0.2 E.U./dL (0.20 - 1.00)
[2017-12-21 18:58] LABS: BASO % 0.4 % (0-6); EOS % 2.6 % (0-6); GRAN % 67.9 % (47-80); HEMATOCRIT 42.9 % (35.0-47.0); HEMOGLOBIN 14.6 gm/dl (11.6-16.0); LYMPH % 24.2 % (16-45); MEAN CELL VOLUME 90.7 fl (81-97); MEAN CORPUSCULAR HEMOGLOBIN 30.9 pg (27-33); MEAN PLATELET VOLUME 10.5 fl (7.4-10.4); MONO % 4.9 % (0-9); PLATELET COUNT 306 K/uL (130-400); RED BLOOD COUNT 4.73 M/uL (3.80-5.40); RED CELL DISTRIBUTION WIDTH 12.8 % (11.5-14.5); WHITE BLOOD COUNT W/O DIFF 10.1 K/uL (4.2-12.2)
[2017-12-21 19:14] LABS: ALBUMIN 4.4 g/dL (4.0-5.0); ALKALINE PHOSPHATASE 82 U/L (35-104); ALT/SGPT 26 U/L (<33); AST/SGOT 22 U/L (10.0-35.0); BLOOD UREA NITROGEN 10 mg/dL (6-20); CREATININE 0.8 mg/dL (0.5-0.9); EST GLOMERULAR FILTRATION RATE > 60 mL/min; GLUCOSE,RANDOM 92 mg/dL (74-109)
[2017-12-21 19:17] LABS: BILIRUBIN,DIRECT < 0.2 mg/dL (0-0.3)
--- NOTE | 2017-12-21 19:47 | Emergency Department Record ---
History of Present Illness - General Chief complaint: GI Bleed Stated complaint: BLOOD IN STOOL Time Seen by Provider: 12/21/17 19:10 Source: Patient Mode of Arrival: Ambulatory - History of Present Illness Initial comments: The patient has a myriad of complaints which mainly stem from and exacerbation of her chronic back pain. She has had low back pain for at least 5 years. She has been diagnosed with tenosynovitis right arm, and trochanteric bursitis of her left hip which has become chronic. Tonight she came because she saw blood in her stool after having a hard formed stool mixed with loose stool. She brought a sample here which showed no gross blood to be visible. She is getting P.T. also and has a workman's comp doctor who is prescribing her Flexeril, prilosec, and ibuprofen. She is here due to the bleeding with her BM. complaint: Blood on toilet paper Onset/Timin -: Days(s) Radiation: Back, L flank Severity scale (1-10): 7 Quality: Cramping Improves with: None Worsens with: None Context: Liver disease Associated Symptoms: Denies other symptoms Treatments Prior to Arrival: OTC meds - Related Data Home Medications Medication Instructions Recorded Confirmed Last Taken Cyclobenzaprine HCl [Flexeril] 10 mg PO TID 12/21/17 12/21/17 1 Day Ago ~12/20/17 Ibuprofen [Motrin 600Mg] 600 mg PO Q8H 12/21/17 12/21/17 1 Day Ago ~12/20/17 Allergies Allergy/AdvReac Type Severity Reaction Status Date / Time oxaprozin [From Daypro] Allergy RASH Verified 12/21/17 18:15 bupropion HCl AdvReac Mood Verified 12/21/17 18:15 [From Wellbutrin] Changes hydrocodone AdvReac NAUSEA AND Verified 12/21/17 18:15 VOMITING Travel Screening - Travel/Exposure Within Last 30 Days Have you traveled within the last 30 days?: No - Travel/Exposure Within Last Year Have you traveled outside the [place] in the last year?: No - Additonal Travel Details Have you been exposed to anyone with a communicable illness?: No - Travel Symptoms Symptom Screening: None Review of Systems Reviewed: No additional complaints except as noted below Constitutional: Reports: As per HPI. Denies: Chills, Fever, Malaise, Night sweats, Weakness, Weight change Eyes: Reports: As per HPI. Denies: Eye discharge, Eye pain, Photophobia, Vision change ENT: Reports: As per HPI. Denies: Congestion, Dental pain, Ear pain, Epistaxis , Hearing loss, Throat pain Respiratory: Reports: As per HPI. Denies: Cough, Dyspnea, Hemoptysis, Stridor, Wheezes Cardiovascular: Reports: As per HPI. Denies: Arrhythmia, Chest pain, Dyspnea on exertion, Edema, Murmurs, Orthopnea, Palpitations, Paroxysmal nocturnal dyspnea, Rheumatic Fever, Syncope Endocrine: Reports: As per HPI. Denies: Fatigue, Heat or cold intolerance, Polydipsia, Polyuria Gastrointestinal: Reports: As per HPI. Denies: Abdominal pain, Constipation, Diarrhea, Hematemesis, Hematochezia, Melena, Nausea, Vomiting Genitourinary: Reports: As per HPI. Denies: Abnormal menses, Discharge, Dyspareunia, Dysuria, Frequency, Hematuria, Incontinence, Retention, Urgency Musculoskeletal: Reports: As per HPI. Denies: Arthralgia, Back pain, Gout, Joint swelling, Myalgia, Neck pain Skin: Reports: As per HPI. Denies: Bruising, Change in color, Change in hair/ nails, Lesions, Pruritus, Rash Neurological: Reports: As per HPI. Denies: Abnormal gait, Confusion, Headache, Numbness, Paresthesias, Seizure, Tingling, Tremors, Vertigo, Weakness Psychiatric: Reports: As per HPI. Denies: Anxiety, Auditory hallucinations, Depression, Homicidal thoughts, Suicidal thoughts, Visual hallucinations Hematological/Lymphatic: Reports: As per HPI. Denies: Anemia, Blood Clots, Easy bleeding, Easy bruising, Swollen glands Past Medical History - SOCIAL HISTORY Smoking Status: Light tobacco smoker (<10/day) Alcohol Use: Rare Drug Use: Rare Drug Use Detail:: Marijuana - RESPIRATORY Hx Asthma: Yes - CARDIOVASCULAR Hx Cardio Disorders: Yes Comment:: murmur - NEURO Hx Neuro Disorders: Yes Hx Headaches: Yes - GI Hx GI Disorders: Yes Hx Reflux: Yes Hx of Polyps: Yes - Hx Genitourinary Disorders: No - ENDOCRINE Hx Endocrine Disorders: No - MUSCULOSKELETAL Hx Musculoskeletal Disorders: Yes - PSYCH Hx Psych Problems: Yes Hx Anxiety: Yes Hx Depression: Yes - HEMATOLOGY/ONCOLOGY Hx Hematology/Oncology Disorders: No Family Medical History Any Significant Family History?: Yes Hx Cancer: Grandparents Hx Depression: Father *Diabetes Comment: Uncle *HTN Comment: Uncle Physical Exam - General General Appearance: Alert, Oriented x3, Cooperative, No acute distress - Head Head exam: Normal inspection - Eye Eye exam: Normal appearance, PERRL Pupils: Normal accommodation - ENT ENT exam: Normal exam, Mucous membranes moist, Normal external ear exam, Normal orophraynx, TM's normal bilaterally Ear exam: Normal external inspection. negative: External canal tenderness Nasal Exam: Normal inspection. negative: Discharge, Sinus tenderness Mouth exam: Normal external inspection, Tongue normal Teeth exam: Normal inspection. negative: Dental caries Throat exam: Normal inspection. negative: Tonsillar erythema, Tonsillar exudate - Neck Neck exam: Normal inspection, Full ROM. negative: Tenderness - Respiratory Respiratory exam: Normal lung sounds bilaterally. negative: Respiratory distress - Cardiovascular Cardiovascular Exam: Regular rate, Normal rhythm, Normal heart sounds - GI/Abdominal GI/Abdominal exam: Soft, Normal bowel sounds. negative: Tenderness - Rectal Rectal exam: Heme (-) stool (brown), Other (no fissures, no hemorrhoids, no tenderness.) - exam: Deferred - Extremities Extremities exam: Normal inspection, Full ROM, Normal capillary refill. negative: Calf tenderness, Pedal edema, Tenderness - Back Back exam: Reports: Normal inspection, Full ROM, Paraspinal tenderness (lower lumbar and sacral SI region on the left. ). Denies: CVA tenderness (R), CVA tenderness (L), Muscle spasm, Rash noted, Tenderness - Neurological Neurological exam: Alert, CN II-XII intact, Normal gait, Oriented X3, Reflexes normal. negative: Motor sensory deficit - Psychiatric Psychiatric exam: Normal affect, Normal mood - Skin Skin exam: Dry, Intact, Normal color, Warm Course Vital Signs 12/21/17 18:04 Temperature 97.8 F Pulse Rate 67 Respiratory 18 Rate Blood Pressure 129/92 Pulse Ox 100 - Reevaluation(s) Reevaluation #1: 12/21/17 23:05 Patient is feeling somewhat better. All results reviewed with patient. All questions answered. Patient will follow with previously arranged physicans. Medical Decision Making - Management Options MDM Management: No Additional Work-up Planned - Data Complexity MDM Data: Labs Ordered and/or Reviewed, X-Ray Ordered and/or Reviewed (CT lumbar : Mild arthritic changes, no acute fracture or abnormality. Per Rad.) - Lab Data Result diagrams: 12/21/17 18:40 12/21/17 18:40 Lab Results 12/21/17 12/21/17 12/21/17 Range/Units 18:40 18:40 18:40 WBC 10.1 (4.2-12.2) K/uL RBC 4.73 (3.80-5.40) M/uL Hgb 14.6 (11.6-16.0) gm/dl Hct 42.9 (35.0-47.0) % MCV 90.7 (81-97) fl MCH 30.9 (27-33) pg MCHC 34.0 (32-36) g/dl RDW 12.8 (11.5-14.5) % Plt Count 306 (130-400) K/uL MPV 10.5 H (7.4-10.4) fl Gran % 67.9 (47-80) % Lymphocytes % 24.2 (16-45) % Monocytes % 4.9 (0-9) % Eosinophils % 2.6 (0-6) % Basophils % 0.4 (0-6) % Sodium 139 (136-145) mmol/L Potassium 3.6 (3.4-4.5) mmol/L Chloride 100 (98-107) mmol/L Carbon Dioxide 26.0 (22-29) mmol/L Anion Gap 13.0 (7-16) BUN 10 (6-20) mg/dL Creatinine 0.8 (0.5-0.9) mg/dL Estimated GFR > 60 mL/min Random Glucose 92 (74-109) mg/dL Calcium 8.9 (8.6-10.0) mg/dL Total Bilirubin 0.40 (0.2-1.0) mg/dL Direct Bilirubin < 0.2 (0-0.3) mg/dL AST 22 (10.0-35.0) U/L ALT 26 (<33) U/L Alkaline Phosphatase 82 (35-104) U/L Total Protein 7.0 (6.6-8.7) g/dL Albumin 4.4 (4.0-5.0) g/dL Urine Color [place] H Urine Appearance Sl cloudy Urine pH 6.0 (5.0-8.0) Ur Specific [place] >= 1.030 (1.002-1.030) Urine Protein Negative (NEGATIVE) Urine Glucose (UA) Negative (NEGATIVE) Urine Ketones Negative (NEGATIVE) Urine Blood Negative (NEGATIVE) Urine Nitrite Negative (NEGATIVE) Urine Bilirubin Negative (NEGATIVE) Urine Urobilinogen 0.2 (0.20 - 1.00) E.U./dL Ur Leukocyte Esterase Negative (NEGATIVE) Disposition Disposition: Discharge Clinical Impression: History of bloody stools, Chronic low back pain with left-sided sciatica Disposition: Home, Self-Care Condition: (1) Good Instructions: Gastrointestinal Bleeding (ED) Additional Instructions: Continue present meds. Use tennis balls to help with muscle spasm as instructed. Follow with your scheduled physicians as previously instructed. continue present meds. Quality - Quality Measures Quality Measures: N/A - Blood Pressure Screening Does Patient Have Any of the Following: No Blood Pressure Classification: Hypertensive Reading Systolic Measurement: 129 Diastolic Measurement: 92 Screening for High Blood Pressure: < Normal BP, F/U Not Required > [G8783]
[2017-12-21] MEDS ORDERED: 0.9 % SODIUM CHLORIDE 1,000 ML BAG IV ONE (20:10)
[2017-12-21] MEDS ORDERED: ORPHENADRINE CITRATE 60MG/2ML VIAL IVP ONE (20:10)
[2017-12-21] MEDS ORDERED: KETOROLAC 30 MG/ML VIAL IVP ONE (20:10)
[2017-12-21] MEDS ORDERED: DIAZEPAM 5 MG TABLET PO ONE (21:52)
--- NOTE | 2017-12-23 11:58 | CT SCAN REPORT ---
DATE: 12/21/2017 at 9:35 p.m. EXAM: CT SCAN OF THE LUMBAR SPINE. HISTORY: Low back pain. TECHNIQUE: Axial CT scan of the lumbar spine was performed without intravenous contrast. COMPARISON: No prior lumbar CT. Comparison is made with a lumbar spine plain film series dated 12/11/2017. FINDINGS: Wire density is seen in the pelvis, probably representing Essure devices. Scan is begun at the level of the T-12 vertebra and extends down through the sacrum. No fracture of the lumbar spine is identified. Minor spurring, particularly at the T12-L1 and L3-4 interspaces. Mild narrowing of the lumbosacral interspace. Mild generalized bulging of the L3-4 annulus. Minor posterior disc protrusion at the lumbosacral interspace. No central stenosis evident. No foraminal stenosis evident. IMPRESSION: SOME MILD DEGENERATIVE CHANGES NOTED ABOVE. NO FRACTURE OF THE LUMBAR SPINE IDENTIFIED. JOB NUMBER: [id number] MTDD
== END 2017-12-21 23:20 | disposition home or self-care (01) ==
LOC: ER 17:09
DX: M54.42 Lumbago with sciatica, left side (principal); K92.1 Melena; F17.210 Nicotine dependence, cigarettes, uncomplicated
CPT/HCPCS: 99284 ×2; 96374; 96375; 85025; 80076; 80048; 81003; 81025; 72131; J3490; J1885; J2360

== ENCOUNTER 2018-10-15 16:29 | Emergency (ER) | payer SELFPAY ==
--- NOTE | 2018-10-15 17:08 | Emergency Department Record ---
History of Present Illness - General Chief Complaint: Fall Injury Stated Complaint: FALL/WC Time Seen by Provider: 10/15/18 16:50 Source: Patient Mode of Arrival: Ambulatory Limitations: No limitations - History of Present Illness Initial Comments: pt fell yesterday at work injuring her r elbow, l knee and l lower back. she is able to move all without difficulty. she has intermittent numbness going down her l leg but that is not new and she is seeing a dr for it. she needs a work note Complaint: Fall Onset/Timin -: Days(s) Fall From: Other When Fall Occurred: 24 hours [employer] Fall Witnessed: No Place Fall Occurred: Work Symptoms Prior to Fall: None Location: Neck, Back, Buttocks, Other Location - Extremities: Left: Knee, Right: Elbow Severity: Mild Severity scale (1-10): 2 Quality: Sharp, Stabbing Associated Symptoms: Headache, Neck pain, Numbness - [place] Coma Scale Eye Response: (4) Open spontaneously Motor Response: (6) Obeys commands Verbal Response: (5) Oriented [place] Total: 15 - Related Data Allergies Allergy/AdvReac Type Severity Reaction Status Date / Time oxaprozin [From Daypro] Allergy RASH Verified 12/21/17 18:15 bupropion HCl AdvReac Mood Verified 12/21/17 18:15 [From Wellbutrin] Changes hydrocodone AdvReac NAUSEA AND Verified 12/21/17 18:15 VOMITING Travel Screening - Travel/Exposure Within Last 30 Days Have you traveled within the last 30 days?: No - Travel/Exposure Within Last Year Have you traveled outside the [place] in the last year?: No - Additonal Travel Details Have you been exposed to anyone with a communicable illness?: No - Travel Symptoms Symptom Screening: None Review of Systems Reviewed: No additional complaints except as noted below Constitutional: Reports: As per HPI. Denies: Chills, Fever, Malaise, Night sweats, Weakness, Weight change Eyes: Reports: As per HPI. Denies: Eye discharge, Eye pain, Photophobia, Vision change ENT: Reports: As per HPI. Denies: Congestion, Dental pain, Ear pain, Epistaxis , Hearing loss, Throat pain Respiratory: Reports: As per HPI. Denies: Cough, Dyspnea, Hemoptysis, Stridor, Wheezes Cardiovascular: Reports: As per HPI. Denies: Arrhythmia, Chest pain, Dyspnea on exertion, Edema, Murmurs, Orthopnea, Palpitations, Paroxysmal nocturnal dyspnea, Rheumatic Fever, Syncope Endocrine: Reports: As per HPI. Denies: Fatigue, Heat or cold intolerance, Polydipsia, Polyuria Gastrointestinal: Reports: As per HPI. Denies: Abdominal pain, Constipation, Diarrhea, Hematemesis, Hematochezia, Melena, Nausea, Vomiting Genitourinary: Reports: As per HPI. Denies: Abnormal menses, Discharge, Dyspareunia, Dysuria, Frequency, Hematuria, Incontinence, Retention, Urgency Musculoskeletal: Reports: As per HPI. Denies: Arthralgia, Back pain, Gout, Joint swelling, Myalgia, Neck pain Skin: Reports: As per HPI. Denies: Bruising, Change in color, Change in hair/ nails, Lesions, Pruritus, Rash Neurological: Reports: As per HPI. Denies: Abnormal gait, Confusion, Headache, Numbness, Paresthesias, Seizure, Tingling, Tremors, Vertigo, Weakness Psychiatric: Reports: As per HPI. Denies: Anxiety, Auditory hallucinations, Depression, Homicidal thoughts, Suicidal thoughts, Visual hallucinations Hematological/Lymphatic: Reports: As per HPI. Denies: Anemia, Blood Clots, Easy bleeding, Easy bruising, Swollen glands Past Medical History - SOCIAL HISTORY Smoking Status: Light tobacco smoker (<10/day) Alcohol Use: Occasional Drug Use: Heavy Drug Use Detail:: Marijuana - RESPIRATORY Hx Respiratory Disorders: No Hx Asthma: Yes - CARDIOVASCULAR Hx Cardio Disorders: Yes Comment:: murmur - NEURO Hx Neuro Disorders: Yes Hx Headaches: Yes - GI Hx GI Disorders: Yes Hx Reflux: Yes Hx of Polyps: Yes - Hx Genitourinary Disorders: No - ENDOCRINE Hx Endocrine Disorders: No - MUSCULOSKELETAL Hx Musculoskeletal Disorders: Yes - PSYCH Hx Psych Problems: Yes Hx Anxiety: Yes Hx Depression: Yes - HEMATOLOGY/ONCOLOGY Hx Hematology/Oncology Disorders: No Family Medical History Any Significant Family History?: Yes Hx Cancer: Grandparents Hx Depression: Father *Diabetes Comment: Uncle Hx HTN: Mother *HTN Comment: Uncle Physical Exam - General General Appearance: Alert, Oriented x3, Cooperative, Mild distress - Head Head exam: Normal inspection - Eye Eye exam: Normal appearance, PERRL, EOMI Pupils: Normal accommodation - ENT ENT exam: Normal exam, Mucous membranes moist, Normal external ear exam, Normal orophraynx Ear exam: Normal external inspection. negative: External canal tenderness Nasal Exam: Normal inspection. negative: Discharge, Sinus tenderness Mouth exam: Normal external inspection, Tongue normal Teeth exam: Normal inspection. negative: Dental caries Throat exam: Normal inspection. negative: Tonsillar erythema, Tonsillar exudate - Neck Neck exam: Normal inspection, Full ROM. negative: Tenderness - Respiratory Respiratory exam: Normal lung sounds bilaterally. negative: Respiratory distress - Cardiovascular Cardiovascular Exam: Regular rate, Normal rhythm, Normal heart sounds - GI/Abdominal GI/Abdominal exam: Soft, Normal bowel sounds. negative: Tenderness - Rectal Rectal exam: Deferred - exam: Deferred - Extremities Extremities exam: Normal inspection, Full ROM, Normal capillary refill, Tenderness Image of Full Body: 1 - tender slightly, from 2 - slight tenderness, from, no problem wt bearing 3 - tender over si joint - Back Back exam: Reports: Normal inspection, Full ROM. Denies: Muscle spasm, Rash noted, Tenderness - Neurological Neurological exam: Alert, CN II-XII intact, Normal gait, Oriented X3 - Psychiatric Psychiatric exam: Normal affect, Normal mood - Skin Skin exam: Dry, Intact, Normal color, Warm Course Vital Signs 10/15/18 16:36 Temperature 98.3 F Pulse Rate 73 Respiratory 17 Rate Blood Pressure 111/78 Pulse Ox 99 Disposition Disposition: Discharge Clinical Impression: Multiple contusions Disposition: Home, Self-Care Condition: (1) Good Instructions: Contusion in Adults (ED) Additional Instructions: follow up with family doctor. return sooner if worse. ice to sore areas Forms: Patient Portal Access, Return to Work/School Quality - Quality Measures Quality Measures: N/A - Blood Pressure Screening Does Patient Have Any of the Following: No Blood Pressure Classification: Normal BP Reading Systolic Measurement: 111 Diastolic Measurement: 78 Screening for High Blood Pressure: < Normal BP, F/U Not Required > [G8704]
== END 2018-10-15 17:29 | disposition home or self-care (01) ==
LOC: ER 16:29
DX: S80.02XA Contusion of left knee, initial encounter (principal); S30.0XXA Contusion of lower back and pelvis, initial encounter; S50.01XA Contusion of right elbow, initial encounter; R51 Headache; M54.2 Cervicalgia; W19.XXXA Unspecified fall, initial encounter; Y99.0 Civilian activity done for income or pay
CPT/HCPCS: 99281

== ENCOUNTER 2019-01-31 05:38 | Emergency (ER) | payer OTHER ==
[2019-01-31] MEDS ORDERED: KETOROLAC 30 MG/ML VIAL IM ONE (05:48)
[2019-01-31] MEDS ORDERED: ONDANSETRON 4 MG ODT TABLET SL ONE (05:48)
--- NOTE | 2019-01-31 05:49 | Emergency Department Record ---
History of Present Illness - General Stated Complaint: MIGRAINE Time Seen by Provider: 01/31/19 05:40 Source: Patient Mode of Arrival: Ambulatory Limitations: No limitations - History of Present Illness Initial Comments: 38 yo female present with a headache. She identifies it as a migraine. The headache is similar to prior headaches. It started two days ago. She has some light sensitivity. She states changes in weather are a trigger. She states she fractured her nose in the past and changes in weather trigger her headaches. No recent trauma or fever. She has nausea and has vomited. No vision changes. No new or different symptoms from her prior headaches. MD Complaint: "Migraine" -: Days(s) Onset Description: Gradual Location: Frontal Severity: Moderate Quality: Aching, Similar to previous headaches, Other (feels like tension) Improves With: Other (dark room and quiet) Worsens With: Light, Noise Context: Other Associated Symptoms: Nausea, Photophobia, Sensitivity to sound, Vomiting - Related Data Previous Rx's Medication Instructions Recorded Ondansetron [Zofran Odt] 4 mg PO Q8H #15 tab.rapdis 01/31/19 Allergies Allergy/AdvReac Type Severity Reaction Status Date / Time oxaprozin [From Daypro] Allergy RASH Verified 10/15/18 17:22 bupropion HCl AdvReac Mood Verified 10/15/18 17:22 [From Wellbutrin] Changes hydrocodone AdvReac NAUSEA AND Verified 10/15/18 17:22 VOMITING Review of Systems Constitutional: Denies: Chills, Fever, Malaise, Weakness Eyes: Reports: Photophobia. Denies: Eye discharge, Vision change ENT: Denies: Congestion, Throat pain Respiratory: Denies: Cough, Dyspnea, Hemoptysis, Stridor, Wheezes Cardiovascular: Denies: Chest pain, Palpitations, Syncope Endocrine: Denies: Fatigue, Polydipsia, Polyuria Gastrointestinal: Reports: Abdominal pain, Nausea, Vomiting. Denies: Diarrhea Genitourinary: Denies: Dysuria, Urgency Musculoskeletal: Denies: Arthralgia, Back pain, Neck pain Skin: Denies: Bruising, Change in color, Rash Neurological: Reports: Headache. Denies: Abnormal gait, Confusion, Numbness, Seizure, Tingling, Weakness Psychiatric: Denies: Anxiety Hematological/Lymphatic: Denies: Easy bleeding, Easy bruising Past Medical History - SOCIAL HISTORY Smoking Status: Light tobacco smoker (<10/day) Drug Use: Heavy Drug Use Detail:: Marijuana - RESPIRATORY Hx Respiratory Disorders: No Hx Asthma: Yes - CARDIOVASCULAR Hx Cardio Disorders: Yes Comment:: murmur - NEURO Hx Neuro Disorders: Yes Hx Headaches: Yes - GI Hx GI Disorders: Yes Hx Reflux: Yes Hx of Polyps: Yes - Hx Genitourinary Disorders: No - ENDOCRINE Hx Endocrine Disorders: No - MUSCULOSKELETAL Hx Musculoskeletal Disorders: Yes - PSYCH Hx Psych Problems: Yes Hx Anxiety: Yes Hx Depression: Yes - HEMATOLOGY/ONCOLOGY Hx Hematology/Oncology Disorders: No Family Medical History Hx Cancer: Grandparents Hx Depression: Father *Diabetes Comment: Uncle Hx HTN: Mother *HTN Comment: Uncle Physical Exam - General General Appearance: Alert, Oriented x3, Cooperative, No acute distress Limitations: No limitations - Head Head exam: Atraumatic, Normal inspection - Eye Eye exam: Normal appearance, PERRL, EOMI. negative: Conjunctival injection, Nystagmus, Periorbital swelling, Scleral icterus - ENT ENT exam: Normal exam, Mucous membranes moist, Normal orophraynx Ear exam: Normal external inspection Nasal Exam: Normal inspection Mouth exam: Normal external inspection - Neck Neck exam: Normal inspection, Full ROM. negative: Lymphadenopathy, Meningismus , Tenderness - Respiratory Respiratory exam: Normal lung sounds bilaterally - Cardiovascular Cardiovascular Exam: Regular rate, Normal rhythm, Normal heart sounds - Back Back exam: Denies: CVA tenderness (R), CVA tenderness (L) - Neurological Neurological exam: Alert, CN II-XII intact, Normal gait, Oriented X3. negative : Abnormal gait, Altered, Motor sensory deficit - Psychiatric Psychiatric exam: Normal affect, Normal mood - Skin Skin exam: Dry, Intact, Normal color, Warm Course - Reevaluation(s) Reevaluation #1: 01/31/19 06:38 On recheck the pain and nausea are much improved We discussed home care and reasons to return Disposition Disposition: Discharge Clinical Impression: Migraine Disposition: Home, Self-Care Condition: (1) Good Instructions: Migraine Headache (ED) Additional Instructions: Call your doctor for the next available follow up appointment Return to the ER for a recheck if worse, any new concerns or questions Take the prescriptions provided as directed Review this ER visit and the tests performed with your family doctor Prescriptions: Ondansetron [Zofran Odt] 4 mg PO Q8H #15 tab.rapdis Time of Disposition: 06:39 Quality - Quality Measures Quality Measures: N/A, Headache (All Ages) - Headache: Neuroimaging Quality Measure: Measure #419: Overuse of Neuroimaging ICD10 Codes Entered: Yes Neurological Exam: Patient had a normal neurological exam. [G9535] Headache: Use of Neuroimaging: < CTA, CT, MRA or MRI was NOT ordered > [G9534] - Blood Pressure Screening Does Patient Have Any of the Following: No Blood Pressure Classification: Pre-Hypertensive BP Reading Systolic Measurement: 126 Diastolic Measurement: 82 Screening for High Blood Pressure: < Pre-Hypertensive BP, F/U Documented > [ G8950] Pre-Hypertensive Follow-up Interventions: Referral to alternative/primary care provider.
[2019-01-31] MEDS ORDERED: 0.9 % SODIUM CHLORIDE 1,000 ML BAG IV ONE (05:50)
[2019-01-31] MEDS ORDERED: DIPHENHYDRAMINE HCL 50 MG/ML VIAL IVP ONE (05:50)
[2019-01-31] MEDS ORDERED: METOCLOPRAMIDE HCL 10 MG/2 ML VIAL IVP ONE (05:50)
[2019-01-31] MEDS ORDERED: KETOROLAC 30 MG/ML VIAL IVP ONE (05:50)
== END 2019-01-31 06:51 | disposition home or self-care (01) ==
LOC: ER 05:38
DX: G43.909 Migraine, unspecified, not intractable, without status migrainosus (principal); R11.2 Nausea with vomiting, unspecified; H53.149 Visual discomfort, unspecified; F17.210 Nicotine dependence, cigarettes, uncomplicated
CPT/HCPCS: 96374; 96375; 99284; J1200; J1885; J2765; J7030

== ENCOUNTER 2019-08-20 06:53 | Day surgery (SDC) | payer BC ==
--- NOTE | 2019-08-20 06:33 | History and Physical - [place] ---
CHIEF COMPLAINT/HISTORY OF CHIEF COMPLAINT: This patient presents with a history of intractable lumbar radiculopathy. Due to the failure of therapy, a spinal cord stimulator trial was conducted on 07/20/19 with 75+% pain control. Due to the failure of all therapies and the success of the trial, the patient presents today for implantation of a permanent system. PAST MEDICAL HISTORY: Asthmatic bronchitis, sleep apnea, esophagitis, degenerative arthritis, depression, and difficulty sleeping. PAST SURGICAL HISTORY: Nasal surgery, ovarian surgery, and eye surgery. MEDICATIONS ON ADMISSION: List to be provided. ALLERGIES: None. FAMILY/PSYCHOSOCIAL HISTORY: Social history - Smoking and caffeine. Family history - Diabetes, coronary artery disease, and cancer. SYSTEMS REVIEW: The patient is appropriate in no acute distress. PHYSICAL EXAMINATION: Height is 5'5", no weight identified. Vital signs are not available. HEENT: Within normal limits. LUNGS: Clear. HEART: Rapid and regular. ABDOMEN: Nontender. MUSCULOSKELETAL: Examination of the musculoskeletal system shows diffuse tenderness throughout the lumbar spine. Range of motion does cause pain throughout the low back and extending into the lower extremities. There currently are no motor or sensory abnormalities. NEUROLOGIC: Cranial nerves are intact. IMPRESSION: LUMBAR RADICULOPATHY, ICD-10 CODE M54.16 AND M54.17. PLAN: The patient is here for implantation of a permanent spinal cord stimulator and internal generator after a successful trial and the failure of all other therapies. The potential risks, side effects, and complications have been reviewed and discussed. She has been educated through the system as well as by the clinical specialist from [facility]. All questions were answered. The procedure will be considered outpatient although an overnight stay will be evaluated. JOB NUMBER: [id number] [facility]
[~2019-08-20 06:53] MED LIST: ACETAMINOPHEN 1,000 MG/100 ML BTL IVPB ONE; CEFAZOLIN 2 Gram 2 GM/50 ML BAG IVPB ONE; FAMOTIDINE 20MG TABLET PO ONE; MECLIZINE 25 MG TABLET PO ONE; METOCLOPRAMIDE 10 MG TABLET PO ONE
[2019-08-20] MEDS ORDERED: LIDOCAINE 2% MDV (20MG/ML) 20ML VIAL IV ONE (06:54)
[2019-08-20] MEDS ORDERED: PROPOFOL 10 MG/ML VIAL IV ONE (06:54)
[2019-08-20] MEDS ORDERED: FENTANYL PF 100MCG/2ML VIAL IV ONE (06:54)
[2019-08-20] MEDS ORDERED: MIDAZOLAM HCL 2MG/2ML VIAL IV ONE (06:54)
[2019-08-20] MEDS ORDERED: RINGERS SOLUTION,LACTATED 1,000 ML IV ONE (07:30)
[2019-08-20] MEDS ORDERED: CEFAZOLIN 1G VIAL IR ONE (09:11)
[2019-08-20] MEDS ORDERED: BUPIVACAINE 0.5% W/EPI MPF 30 ML VIAL SQ ONE (09:43)
[2019-08-20] MEDS ORDERED: LIDOCAINE 1% W/EPI 1:100,000 MDV 20 ML VIAL SQ ONE (09:43)
[2019-08-20] MEDS ORDERED: HYDROCODONE/APAP 7.5/325MG TABLET PO ONE (10:34)
--- NOTE | 2019-08-20 12:48 | Operative Note - [place] ---
DATE OF SURGERY: 08/20/2019 PREOPERATIVE DIAGNOSIS: LUMBAR RADICULOPATHY, ICD-10 CODE M54.16 AND M54.17. OPERATION: 1. FLUOROSCOPICALLY GUIDED LEFT EPIDURAL ACCESS T11-T12, PLACEMENT OF SPINAL CORD STIMULATOR LEAD 1, [employer] IN[employer] 16, 6-ELECTRODES POSITIONED LEFT T8. 2. FLUOROSCOPICALLY GUIDED EPIDURAL ACCESS, LEFT T12-L1, PLACEMENT OF SPINAL CORD STIMULATOR LEAD 2, [employer] 16, 6-ELECTRODES POSITIONED RIGHT T8. 3. COMPLEX PROGRAMMING OF LEAD 1 OVER TWENTY MINUTES FOLLOWED BY COMPLEX PROGRAMMING OF LEAD 2 OVER TWENTY MINUTES. 4. INCISION, SUBCUTANEOUS DISSECTION, ANCHORING OF LEAD 1 AND LEAD 2 TO THE SUPRASPINOUS FASCIA USING A [employer] SCIENTIFIC LOCKING ANCHOR NONABSORBABLE SUTURE. 5. INCISION, SUBCUTANEOUS DISSECTION, AND CREATION OF SUBCUTANEOUS POUCH RIGHT POSTERIOR GLUTEAL MARGIN REPLACEMENT OF GENERATOR IDENTIFIED A [employer] PROGRAMMABLE RECHARGEABLE WAVEWRITER. 6. TUNNELLING BETWEEN LEAD POUCH AND THE GENERATOR POUCH, TUNNELLING EACH LEAD INTO THE GENERATOR POUCH, EACH LEAD INTERFACED TO THE GENERATOR. 7. PLACEMENT OF GENERATOR INTO THE POUCH, PLACEMENT OF THE LEADS INTO THE POUCH, CLOSURE OF BOTH INCISIONS USING STRATAFIX SUTURE 2-0 FASCIA AND 3-0 SKIN. DERMABOND CLOSURE. 8. COMPLEX PROGRAMMING INTERNAL GENERATOR HOME USE TWO STIMULATORS RECOVERY ROOM TWENTY MINUTES. SURGEON: Real Pinon D.O. ANESTHESIA: Local sedation. ANESTHESIA PROVIDER: NBA Jett CRNA. INDICATION: This patient presents with a history of intractable lumbar radiculopathy. Due to the failure of therapy, a spinal cord stimulator trial was conducted with 75-90% pain control. Due to the failure of all other therapies and the success of the trial, the patient presents today for implantation of a permanent system. PROCEDURE: Intravenous line, vital sign monitoring, IV sedation, prepped and draped, sterile technique. Under imaging the epidural interspace with the patient prone at T11-T12 and T12-L1 were both identified, and marked on the left, skin infiltrated. Using two standard needles with loss of resistance, the epidural spaces were accessed at each level, atraumatic. No blood. No CSF. At T11-T12, the spinal cord stimulator Lead 1, a [employer] Infinion 16, 6-electrodes was positioned left of midline at T8. With the access at T12-L1, the spinal cord stimulator Lead 2, [employer] Infinion 16, 6-electrodes was positioned right at T8. Complex programming of Lead 1 over twenty minutes followed by complex programming of Lead 2 over twenty minutes resulting in a complete pattern of stimulation across the back and into the legs. The patient indicated that we hit all of the areas of the pain. She was given the opportunity to implant, continue to program, or remove and she opted to implant. Questions were repeated with the same response. She was re-sedated and then the skin above and below both needles was infiltrated with a local. An incision was made and subcutaneous dissection was conducted to the supraspinous fascia. The needles are removed and each lead was anchored to the supraspinous fascia with a [employer] locking anchor and nonabsorbable suture. At the right posterior gluteal margin at a site picked by the patient for the generator the skin was infiltrated, an incision was made and subcutaneous dissection was conducted to form a pouch of suitable size and depth for the generator, a [employer] programmable rechargeable WaveWriter. A tunnelling tool was used to carry both leads into the generator pouch and then each lead was interfaced with the generator. Antibiotic irrigation, Bovie for hemostasis. Both incisions were then closed using Stratafix suture 2-0 fascia and 3-0 skin. Dermabond closure was used to approximate the edges of both wounds. She was transported to the Recovery Room stable. No side effects from the procedure or sedation. By her request when fully awake and alert, she was prepared for dischargee. DISCHARGE INSTRUCTIONS: 1. The sites are to remain clean and dry. No showering or bathing in any way that would disrupt the dressings. If it happens contact the clinic. The Dermabond will allow showering, but no sitting in water. 2. Standard medications resumed including Levaquin, the antibiotic 500 mg once a day for fourteen days. A [place] prescription for pain control has been provided. 3. Office to contact the patient in 12-24 hours to set up a time in 7-10 days for us to evaluate the sites, until then she is to keep her activities low and controlled. All other instructions are provided. Numbers to contact if problems given. She was then prepared for discharge. JOB NUMBER: [id number] MTDD
--- NOTE | 2019-08-20 13:42 | RADIOLOGY REPORT ---
EXAMINATION: Spine Single View EXAM DATE: 08/20/2019 10:49 AM TECHNIQUE: Lateral view INDICATION: S/P SCS IMPLANT COMPARISON: 07/24/2019 ENCOUNTER: Initial FINDINGS: Spinal stimulator device projects over the thoracic spine, superior aspect is at the level of T8. IMPRESSION: 1. Spinal stimulator device present at the level of the thoracic spine. Dictated by: Francois Vaughan DO on 08/20/2019 1:39 PM. .
== END 2019-08-20 10:58 | disposition home or self-care (01) ==
LOC: SUR 06:53
PROVIDERS: ATTEND Pain Medicine Interventional Pain Medicine
DX: M54.16 Radiculopathy, lumbar region (principal); M54.17 Radiculopathy, lumbosacral region; J45.909 Unspecified asthma, uncomplicated; G47.33 Obstructive sleep apnea (adult) (pediatric); R01.1 Cardiac murmur, unspecified; K21.9 Gastro-esophageal reflux disease without esophagitis
CPT/HCPCS: 72020; 95972; C1820; C1883; J0690; J7120